=== PATIENT | female | born 1945 | race Caucasian/White ===

== ENCOUNTER 2023-05-04 13:17 | Inpatient (IN) | payer OTHER, SELFPAY ==
[2023-05-04] VITALS (12 sets, daily range): BP systolic 131–190; BP diastolic 55–101; BMI 26.8
--- NOTE | 2023-05-04 06:17 | ED.GENMED ---
History of Present Illness
General
Chief Complaint: Breathing Problem
Source: patient
Time Seen by Provider: 05/04/23 06:17
Travel History
Have you had any contact with someone who has COVID-19?: No
Do you have any symptoms of coronavirus? Fever > 100 degrees, chills, cough, shortness of breath, sore throat, loss of taste or smell, muscle aches, or headache?: No
History of Present Illness
History of Present Illness:
77-year-old female presents to the emergency room complaining of chest discomfort and shortness of breath. Patient evidently has a history of COPD and heart failure. She believes that she should have home oxygen but her family doctor did not
arrange it for what ever reason. No fever or chills. She did use a breathing treatment earlier today without improvement. No associated diaphoresis or nausea.
Phy Exam
Physical Exam
Physical Exam:
General: Awake, Alert, Oriented X3. No acute distress.
Vitals: unremarkable
Head: Atraumatic
Eyes: Pupils equal, EOMI
Throat: Airway intact, no exudates
Neck: Trachea midline
Lungs: Decreased breath sounds, expiratory wheezing
Heart: Regular rate, no murmurs
Abd: Soft, Nontender, No pulsatile mass
Neuro: Nonfocal
Skin: Warm, dry, no rash
Extremities: pulses equal b/l, no edema
Scores
Heart Failure Risk
Heart Failure Risk Score: Not Applicable
Course
Orders/Labs/Results
Orders:
Orders
05/04/23 05:17
EKG [Electrocardiogram (*1)] Urgent
Reason for Study: Shortness of Breath
EKG- Treatment ONCE
05/04/23 06:23
Ipratropium/Albuterol Sulfate [Duoneb] 3 ml INH R NOW STA
CR Chest - 2 Views Urgent
Comment:
Reason For Exam: sob
05/04/23 06:53
Basic Metabolic Panel Urgent
COVID-19 Antigen Urgent
Source: Nasal Swab
Complete Blood Count/With Diff Urgent
D-Dimer Urgent
NT-proBNP Urgent
Troponin I Urgent
Influenza A+B Rapid Molecular Urgent
JANUARY Source: Nasal Swab
Specimen Description:
05/04/23 07:09
Add On- LAB Urgent
Tests Added?: pro-bnp
05/04/23 08:51
Ipratropium/Albuterol Sulfate [Duoneb] 3 ml INH R NOW STA
05/04/23 11:21
Dexamethasone Sod Phosphate [Decadron] 10 mg IV NOW STA
05/04/23 13:06
Admit/Transfer Patient As Directed
Co-Sign Provider:
Level of Care: Inpatient admission
Assign to:: Medical/Surgical
Physician / Group: mikayla ramirez
Diagnosis: acute bronchitis, hx dementia
Reason for Hospitalization: acute bronchitis, hx dementia
Expected length of stay greater than two midnights?: Yes
ELOS- Estimated Length of Stay in days: 3
I certify the patient meets the requirements for IP care: Yes
05/04/23 13:07
Code Status As Directed
Resuscitation Status: Full Code
05/04/23 13:09
PULMONARY CONSULT Routine
Consulting Provider: Rudy Levine
Was physician already notified: Yes
Reason for consult: acute bronchitis
Abnormal Lab Results
05/04/23
06:53
Hct 36.9 L %
(37.0-47.0)
MCHC 32.8 L g/dL
(33.0-37.0)
Eosinophils % 6.6 H %
(0-6)
D-Dimer 0.56 H ug/mlFEU
(0.00-0.50)
Glucose 112 H mg/dl
(70-99)
05/04/23 06:53
05/04/23 06:53
Vital Signs
Initial and Last Documented VS:
Initial Vital Signs
Temp Pulse Resp Pulse Ox
98.4 F 91 21 93
05/04/23 05:19 05/04/23 05:19 05/04/23 05:19 05/04/23 05:19
Last Documented Vital Signs
Temp Pulse Resp BP Pulse Ox
98.4 F 84 21 149/60 93
05/04/23 05:19 05/04/23 13:30 05/04/23 13:30 05/04/23 12:03 05/04/23 13:30
MDM/Problems Addressed
Differential Diagnosis Includes:
COPD exacerbation, pneumonia, pneumothorax, anemia
MDM/Problems Addressed:
Patient has shortness of breath particular with exertion. Workup here does not show any evidence for an infectious process. White count is normal. Hemoglobin is normal. Troponin is normal. Chest x-ray does not show any acute infiltrate.
Patient's BNP is 125 which should essentially rule out heart failure. Radiology report of the chest x-ray questions heart failure but given that BNP and not convinced. Suspect patient is suffering from more of a COPD exacerbation. Will treat with
nebs and steroids. Patient require hospitalization because she is unable to ambulate without significant dyspnea
*Radiology
Radiology exam reviewed: preliminary read by ED provider (My review of the chest x-ray is no acute infiltrate. No significant pulmonary edema)
*Pulse Oximetry
Patient hypoxic: yes
*EKG
Interpreted by ED Provider?: Yes
Interpretation: normal
Heart Rate: 99
Rate: normal
Rhythm: sinus
[place]: normal axis
Interval: normal interval
QRS Pattern: normal QRS
Ischemia: no ischemia
*Acid Blower Interpretation
Rate: normal
Interpretation: normal
Heart Rate: 99
Rhythm: sinus
*Critical Care Note
Total Time (30-74mins, 75-104mins- exclusive of procedures): Not Applicable
Data Reviewed
Further Testing Considered But Not Given:
Considered discharge but the patient becomes fairly dyspneic with minimal exertion. Patient will require hospitalization for further stabilization
Patient Management
Social determinants of health affecting care: Living situation
Discussion with other providers: Hospitalist
ED Attending Note
-
Portions of this chart may have been created with voice recognition software.� Occasional wrong word or��sound alike� substitutions may have occurred due to the inherent limitations of voice recognition software.
Discharge Plan
Departure
Patient Disposition: Admit
Date of Disposition: 05/04/23
Time of Disposition: 11:22
Admit to: Med/Surg
Presentation/result/management discussed w/ accepting MD/DO: Hospitalist
Condition: Fair
Discharge Problem:
COPD exacerbation
Interventions
Interventions:
*Risk Screen - Suicide Last Done: 05/04/23 05:19
*General Assessment Last Done: 05/04/23 05:19
*Neglect/Abuse Screening Last Done: 05/04/23 05:19
ED- Fall Risk Assessment Last Done: 05/04/23 05:28
*ED COVID-19 Vaccine History Last Done: 05/04/23 05:28
ED- Cardiac Assessment Last Done: 05/04/23 05:28
ED- Pulmonary Assessment Last Done: 05/04/23 05:28
[2023-05-04] MEDS: DUONEB 3 ML INH ×4 (07:03→20:05)
[2023-05-04 07:13] LABS: % Basophils 0.7 % (0-2); % Eosinophils 6.6 % (0-6); % Immature Granulocytes 0.3 % (0-0.5); % Lymphocytes 24.6 % (20.5-51.1); % Monocytes 7.7 % (1.7-9.3); % Neutrophils 60.1 % (42.2-75.2); Absolute Basophils 0.1 10^3/uL (0-0.2); Absolute Eosinophils 0.5 10^3/uL (0-0.7); Absolute Lymphocytes 1.7 10^3/uL (1.2-3.4); Absolute Monocytes 0.5 10^3/uL (0.1-0.6); Absolute Neutrophils 4.1 10^3/uL (1.4-6.5); Hematocrit 36.9 % (37.0-47.0); Hemoglobin 12.1 g/dL (12.0-16.0); Mean Corp Hgb Conc. 32.8 g/dL (33.0-37.0); Mean Corpuscular Hgb 28.1 pg (27.0-31.0); Mean Corpuscular Volume 85.6 fL (81.0-99.0); Mean Platelet Volume 9.6 fL (7.4-10.4); Nucleated Red Blood Cells % 0 %; Platelet Count 289 10^3/uL (130-400); Red Blood Cell Count 4.31 10^6/uL (4.20-5.40); Red Cell Dist. Width 12.7 % (11.5-14.5); White Blood Cell Count 6.8 10^3/uL (4.8-10.8)
[2023-05-04 07:25] LABS: Blood Urea Nitrogen 14 mg/dl (7-17); Calcium 9.3 mg/dl (8.4-10.2); Carbon Dioxide 29 mmol/L (22-30); Chloride 106 mmol/L (98-107); Estimated Creatinine Clearance 71 ml/min; Glucose 112 mg/dl (70-99); Potassium 4.5 mmol/L (3.5-5.1); Sodium 139 mmol/L (135-145); eGFR > 60.00
[2023-05-04 07:33] LABS: COVID-19 Antigen Negative (Negative)
[2023-05-04 07:36] LABS: NT-proBNP 125 pg/ml; Troponin I < 0.012 ng/ml
[2023-05-04 07:37] LABS: D-Dimer 0.56 ug/mlFEU (0.00-0.50)
[2023-05-04] MEDS: DECADRON 10 MG IV (11:26)
--- NOTE | 2023-05-04 12:20 | HPS.HSE ---
Addendum entered and electronically signed by Edgard Alva MD 05/04/23 14:51:
I saw and examined the patient.
The LITHOGRAPHIC ARTIST or PA's note was reviewed and I agree with the note.
Comment: 77-year-old female with past medical history of dementia, depression, hypothyroidism, IBS came to the hospital with shortness of breath with suspected COPD exacerbation. Start Decadron, nebs. Pulmicort. Consult pulmonary. has been around
people with smoking. Recent admission at [facility]. Check echo.
General:�No acute distress
HEENT:�NormoCephalic, Anicteric, Oxygen (2lnc)
Respiratory:�Wheezes (diffuse expiratory ); No Rales or Rhonchi
Cardiac:�S1/S2 and Regular Rhythm; No Tachycardia, Murmur
Breast:�Deferred by me
GI:�Soft, Non Tender, Non Distended, Normal Bowel Sounds and No Hepatosplenomegaly
Rectal:�Deferred by Provider
Genito-urinary:�no quinn
Musculoskeletal:� No Edema
Skin:�Warm and Dry
Neuro:�AO x 2-3
Psych:�Calm
I spent a total of 77 minutes with the patient or on the floor. More than 50% of this time involved counseling and coordination of care.
Original Note:
Family Physician
-
Family Physician: NO INTERVIEW UNKNOWN
Chief Complaint
-
Shortness of breath with chest pain on inspiration
History of Present Illness
79-year-old female complaining of shortness of breath with chest pain on inspiration. She had an admission March 20 March 23 at [facility] was diagnosed with COPD given steroids and nebs at that time. Her daughter Alicia who she lives
with states she was not satisfied with the workup. She reports her mother still has a persistent cough with chronic wheezing increased over the past several days. She also reports decline in walking increased shortness of breath increase memory
impairment over the past 60 days. She does have history of Alzheimer's diagnosed 2 years ago did not tolerate medication at that time. She does report she has sundowning with anxiety symptoms. She denies headache, fever, chills, palpitations,
abdominal pain, nausea, vomiting, diarrhea, urinary symptoms. I spoke with her daughter Alicia whom she lives with who gave me all of her medical information.
She has has past medical history of COPD Dx March 20 [facility], Alzheimer's with sundowning HTN, hypothyroidism secondary to complete thyroidectomy thyroid cancer, bilateral mastectomy , chronic ambulatory dysfunction uses walker and
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
Medical History
Past Medical History
Past Medical History: Reports Other
Additional Past Medical History:
HTN�benign
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
Dx dementia October 2021
Thyroid cancer with thyroidectomy
Past Surgical History: Reports Other
Additional Past Surgical History:
Hysterectomy
Breast cancer with mastectomy and lymph node removal
Social History
Tobacco: Non-smoker
Alcohol: None
Drug: None
Personal: Single
Living: With Family (Daughter Alicia)
Employment: Retired
Family History
Family History: Other (Mother breast cancer Father colon cancer)
Allergies / Home Medications
Allergies reflects when Allergies were last updated in [employer]
Home Medications with original date entered in [employer]
Allergy/Medication List:
Allergies
Allergy/AdvReac Type Severity Reaction Status Date / Time
No Known Allergies Allergy Unverified 05/04/23 07:03
Home Medications
ascorbic acid (vitamin C) 500 mg tablet (Vitamin C) 500 mg PO DAILY 05/04/23
aspirin 325 mg tablet 325 mg PO DAILY 05/04/23
benzonatate 1 tab PO TIDPRN PRN cough 05/04/23
buspirone 5 mg tablet 5 mg PO BID@0800,1500 05/04/23
citalopram 20 mg tablet 20 mg PO DAILY 05/04/23
docusate sodium 100 mg capsule (Colace) 100 mg PO DAILY 05/04/23
hydroxyzine HCl 10 mg tablet 10 mg PO HS 05/04/23
ipratropium 0.5 mg-albuterol 3 mg (2.5 mg base)/3 mL nebulization soln 3 ml inhalation R Q4HPRN PRN sob 05/04/23
levothyroxine 125 mcg tablet 125 mcg PO DAILY 05/04/23
linaclotide 290 mcg capsule (Linzess) 290 mcg PO DAILY PRN IBS 05/04/23
olmesartan 40 mg tablet 40 mg PO DAILY 05/04/23
omeprazole 40 mg capsule,delayed release 40 mg PO DAILY 05/04/23
Review of Systems
-
History Source: Patient and Family (daughter royce )
A 12 point ROS was completed and negative except as noted: Yes
Constitutional: Reports Fatigue; Denies Fever
EENT: Denies Tearing or Runny Nose
Respiratory: Reports Cough and Trouble Breathing (wheezing )
Cardiac: Denies Chest Pain, Palpitations or Syncope
Abdomen/GI: Denies Abdominal Pain, Nausea, Vomiting, Diarrhea, Constipated or Bloody Stools
: Denies Dysuria, Frequency, Flank Pain or Incontinence
Musculoskeletal: Denies Joint Pain or Edema
Skin: Denies Itching or Rash
Neurological: Denies Dizzy or Headache
Endocrine: Reports No Symptoms
Hematologic/Lymphatic: Reports No Symptoms
Psych: Reports Calm
Physical Exam
Vital Signs
Vital Signs
Temp Pulse Resp BP Pulse Ox
98.4 F 92 17 131/101 93
05/04/23 05:19 05/04/23 11:30 05/04/23 11:30 05/04/23 11:00 05/04/23 11:30
Physical Exam
General: Slurred Speech (chronic)
HEENT: NormoCephalic, Anicteric, Moist mucous membranes, PERRLA, [place] Conjunctivae and Oxygen (2lnc)
Respiratory: Wheezes (diffuse expiratory ); No Rales or Rhonchi
Cardiac: S1/S2 and Regular Rhythm; No Tachycardia, Murmur, Rub, Gallop or Peripheral Edema
Breast: Deferred by me
GI: Soft, Non Tender, Non Distended, Normal Bowel Sounds and No Hepatosplenomegaly
Rectal: Deferred by Provider
Genito-urinary: Deferred by me
Musculoskeletal: No Clubbing, No Cyanosis and No Edema
Skin: Warm and Dry; No Rash or Jaundice
Neuro: AO x 3 (with some foregetgullness or time discrepency ), No Sensory Deficits and Slurred Speech (Chronic); No Facial Droop or Tremors
Psych: Calm
Laboratory Results
-
05/04/23 06:53
05/04/23 06:53
Laboratory Results
Troponin I < 0.012 ng/ml 05/04/23 06:53
Impression/Plan
-
Impression/plan:
Admit to [facility]
#Acute hypoxic resp insuff 2/2 Acute Bronchitis
New DX COPD Mar 20 2023
93% RA, O2 support as needed
COVID/flu negative
-decadron
-duo nebs svh and prn
-pulmicort
- Consult pulm
Old records from [facility] admit mar 20-
- before D/c get walking pulse ox
- 2D echo
CXR: Marked elevation both hemidiaphragms limits study. Findings suggest mild CHF
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
#Htn
142/55
#Alzheimer's with
-Fall precautions
#Hypothyroidism secondary to complete thyroidectomy
DVT prophylaxis
Subcu Lovenox
Full code
--- NOTE | 2023-05-04 14:11 | PHANOTE ---
05/04/2023, med rec tech, spoke to pt.'s daughter to obtain pt.'s med history; per daughter, pt. takes Benzonatate TIDPRN for cough but this med. is not in pt.'s pharmacy fill data and there are no [facility] records for the pt.; attempted to call pt.'s
pharmacy ([facility] [address] [place], [place] [id number]); phone: [phone]; however, it was closed at time of interview so I could not confirm this med.; pt.'s daughter does not know the strength of this med.
[2023-05-04] MEDS: DUONEB INH (15:49)
--- NOTE | 2023-05-04 16:45 | PTCARENOTE ---
05/04- Patient transferred and oriented to unit without issue. AAOX3, slurred speech, Skin=Warm/[place]/Dry. 2L O2. Patient denies any current complaints.
--- NOTE | 2023-05-04 17:28 | CON.PUL ---
Consultation
Consultation Request
Date/Time Consultation Requested: 05/04/2023 - 130
Date/Time Consultation Performed: 05/04/2023 - 1626
Requesting Provider: Kandi GARZA
Performing Provider: Dr. Levine
Reason for Consultation: COPD exacerbation
Medical History
-
Chief Complaint: Shortness of breath
History of Present Illness:
77-year-old female with a past medical history of COPD, hypertension and stroke who presents with shortness of breath. She apparently was diagnosed COPD earlier this year via a hospitalization at [facility]. Patient still has a
cough with wheezing over the last several days. CXR showed bilateral hemidiaphragm elevation with increased pulmonary vascular congestion. Patient believed to be in a COPD exacerbation and was started on steroids, nebulized bronchodilators and now
pulmonary consulted for additional recommendations.
PMHx: Stroke, dementia, thyroid cancer s/p thyroidectomy, hypertension
PSHx: Hysterectomy, mastectomy with lymph node resection
Past Medical History
Past Medical History: Other (Above as per HPI)
Past Surgical History: Other (Above as per HPI)
Social History
Tobacco: Non-smoker
Alcohol: None
Drug: None
Living: With Family
Family History
Family History: Cancer (Mother: Breast cancer; father: Colon cancer)
Allergies / Home Medications
Allergies
Allergy/AdvReac Type Severity Reaction Status Date / Time
No Known Allergies Allergy Unverified 05/04/23 07:03
Home Medications
Medication Instructions Recorded Confirmed Last Taken Type
ascorbic acid (vitamin C) 500 mg 500 mg PO DAILY 05/04/23 05/04/23 05/03/23 History
tablet (Vitamin C)
aspirin 325 mg tablet 325 mg PO DAILY 05/04/23 05/04/23 05/03/23 History
benzonatate 1 tab PO TIDPRN PRN cough 05/04/23 05/03/23 History
buspirone 5 mg tablet 5 mg PO BID@0800,1500 05/04/23 05/04/23 05/03/23 History
citalopram 20 mg tablet 20 mg PO DAILY 05/04/23 05/04/23 05/03/23 History
docusate sodium 100 mg capsule 100 mg PO DAILY 05/04/23 05/04/23 05/03/23 History
(Colace)
hydroxyzine HCl 10 mg tablet 10 mg PO HS 05/04/23 05/04/23 05/03/23 History
ipratropium 0.5 mg-albuterol 3 mg 3 ml inhalation R Q4HPRN PRN sob 05/04/23 05/04/23 05/04/23 History
(2.5 mg base)/3 mL nebulization
soln
levothyroxine 125 mcg tablet 125 mcg PO DAILY 05/04/23 05/04/23 05/03/23 History
linaclotide 290 mcg capsule 290 mcg PO DAILY PRN IBS 05/04/23 05/04/23 Unknown History
(Linzess)
olmesartan 40 mg tablet 40 mg PO DAILY 05/04/23 05/04/23 05/03/23 History
omeprazole 40 mg capsule,delayed 40 mg PO DAILY 05/04/23 05/04/23 05/03/23 History
release
Review of Systems
-
History Source: Patient
All other systems: Negative unless noted (12 point ROS performed and is negative unless mentioned above.)
Vitals / Labs / Diagnostic Testing
Vital Signs
Temp Pulse Resp BP Pulse Ox
98.2 F 107 18 168/92 97
05/04/23 17:00 05/04/23 20:08 05/04/23 20:08 05/04/23 17:00 05/04/23 20:08
Lab Data
05/04/23 06:53
05/04/23 06:53
Microbiology
05/04/23 06:53 Nasal Swab Influenza Types A & B (JAMISON) - Final
Negative for Influenza A & B, NAAT
Negative results must be combined with clinical observations
and patient history.
Nucleic Acid Amplification test (NAAT)performed on the
Pulsant NOW platform.
Diagnostic Testing:
Physical Exam
-
HEENT: Normocephalic and Anicteric
Cardiovascular: S1/S2 and Peripheral Edema (Negative)
Respiratory: Wheeze (Negative), Rales (Right base) and Rhonchi (Negative)
GI: Soft, Non Distended and Non Tender
Neurology: Awake and Alert
Skin: Warm and Dry
General: Comfortable
Assessment
-
Assessment: 77-year-old female with a past medical history of COPD, hypertension and stroke who presents with shortness of breath. She apparently was diagnosed COPD earlier this year via a hospitalization at [facility]. Patient
still has a cough with wheezing over the last several days. CXR showed bilateral hemidiaphragm elevation with increased pulmonary vascular congestion. Patient believed to be in a COPD exacerbation and was started on steroids, nebulized
bronchodilators and now pulmonary consulted for additional recommendations.
Chronic conditions CUSTODIAL MANAGER: Stroke, dementia, thyroid cancer s/p thyroidectomy, hypertension
Impression:
#Acute COPD exacerbation
#Acute respiratory failure with hypoxemia due to above
#Suspected R-posterior (RML vs RLL) pneumonia
#Hypothyroidism
#Hypertension
Plan:
- Continue systemic steroids (currently decadron 4mg IV q8hr) and wean as tolerated
- Nebulized bronchodilators with budesonide BID
- outpatient PFTs - she can follow with us or return to see her storm window installer at [facility]
- Maintain MAP >65
- check procal and check infectious workup with blood, sputum Cx and urine antigens for legionella and Strep pneumo
- Start azithromycin (trend QTc - currently 459ms) + rocephin
- Mucolytics
- Encourage incentive spirometer
- Maintain euglycemia with goal BG 140�180
- Replete K >4, Mg >2
- DVT prophylaxis: LMWH
Pulmonary service will continue to follow along
Data:
CXR 05-04-2023: There is marked elevation of both hemidiaphragms with limits the study. Findings suggest mild congestive heart failure.
[2023-05-04] MEDS: LOVENOX 40 MG SC (19:32)
[2023-05-04] MEDS: DECADRON 4 MG IV (19:33)
[2023-05-04] MEDS: FLUSH (NSS) 2 FLUSH IV ×2 (19:34→23:40)
[2023-05-04] MEDS: PULMICORT 0.25 MG INH (20:05)
[2023-05-04] MEDS: STERILE WATER FOR INJECTION 10 ML IV (23:39)
[2023-05-04] MEDS: ROCEPHIN 1000 MG IV (23:39)
[2023-05-04] MEDS: ZITHROMAX INFUSION 250 IV (23:44)
[2023-05-05] MEDS: DECADRON 4 MG IV ×2 (04:38→11:30)
[2023-05-05] MEDS: FLUSH (NSS) 2 FLUSH IV (04:40)
[2023-05-05 06:00] VITALS: BMI 26.3
[2023-05-05] MEDS: SYNTHROID 125 MCG PO (06:32)
[2023-05-05 07:00] VITALS: BP 141/73
[2023-05-05 07:37] LABS: % Basophils 0.2 % (0-2); % Immature Granulocytes 0.3 % (0-0.5); % Lymphocytes 6.9 % (20.5-51.1); % Neutrophils 91.6 % (42.2-75.2); Absolute Lymphocytes 0.8 10^3/uL (1.2-3.4); Absolute Monocytes 0.1 10^3/uL (0.1-0.6); Absolute Neutrophils 10.8 10^3/uL (1.4-6.5); Hematocrit 36.1 % (37.0-47.0); Hemoglobin 11.9 g/dL (12.0-16.0); Mean Corpuscular Hgb 27.8 pg (27.0-31.0); Mean Corpuscular Volume 84.3 fL (81.0-99.0); Mean Platelet Volume 9.8 fL (7.4-10.4); Nucleated Red Blood Cells % 0 %; Platelet Count 323 10^3/uL (130-400); Red Blood Cell Count 4.28 10^6/uL (4.20-5.40); Red Cell Dist. Width 12.6 % (11.5-14.5); White Blood Cell Count 11.8 10^3/uL (4.8-10.8)
[2023-05-05] MEDS: PULMICORT 0.25 MG INH ×2 (07:42→19:35)
[2023-05-05] MEDS: DUONEB 3 ML INH ×4 (07:42→19:36)
[2023-05-05 08:05] LABS: Procalcitonin < 0.05 ng/ml (0.0-0.25)
[2023-05-05 08:57] LABS: Blood Urea Nitrogen 16 mg/dl (7-17); Calcium 9.4 mg/dl (8.4-10.2); Carbon Dioxide 25 mmol/L (22-30); Chloride 104 mmol/L (98-107); Estimated Creatinine Clearance 63 ml/min; Glucose 148 mg/dl (70-99); Sodium 138 mmol/L (135-145); eGFR > 60.00
[2023-05-05] MEDS: BENICAR 40 MG PO (09:45)
[2023-05-05] MEDS: COLACE 100 MG PO (09:45)
[2023-05-05] MEDS: ASPIRIN 325 MG PO (09:45)
[2023-05-05] MEDS: PROTONIX 40 MG PO (09:46)
[2023-05-05] MEDS: VITAMIN C 500 MG PO (09:46)
--- NOTE | 2023-05-05 10:01 | W.PN.HOSP.TC ---
Today's Communication/Plan
-
Would favor discontinuation of ceftriaxone and continue Zithromax only with normal procalcitonin
Would reduce Decadron to every 12
Appears may not require oxygen at this point
Continue nebulizer therapy
Evaluate for oxygen need prior to discharge
Assessment / Plan
Assessment / Plan
77-year-old female with past medical history of dementia, depression, hypothyroidism, IBS came to the hospital with shortness of breath with suspected COPD exacerbation.� Start Decadron, nebs.� Pulmicort.� Consult pulmonary. has been around people
with smoking.� Recent admission at [place].� Check echo.
General:�No acute distress
HEENT:�NormoCephalic, Anicteric, Oxygen (2lnc)
Respiratory:�Wheezes (diffuse expiratory ); No Rales or Rhonchi
Cardiac:�S1/S2 and Regular Rhythm; No Tachycardia, Murmur
Breast:�Deferred by me
GI:�Soft, Non Tender, Non Distended, Normal Bowel Sounds and No Hepatosplenomegaly
Rectal:�Deferred by Provider
Genito-urinary:�no quinn
Musculoskeletal:� No Edema
Skin:�Warm and Dry
Neuro:�AO x 2-3
Psych:�Calm
#Acute hypoxic resp insuff 2/2 Acute Bronchitis
New DX COPD Mar 20 2023
93% RA, O2 support as needed
COVID/flu negative
-Procalcitonin within normal limits/would favor just placed on Zithromax and withholding further antibiotics including Rocephin
-decadron
-duo nebs svh and prn
�-pulmicort
- Consult pulm
�Old records from [facility] admit mar 20-
- before D/c get walking pulse ox
- 2D echo still pending
� � CXR: Marked elevation both hemidiaphragms limits study.� Findings suggest mild CHF
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
�#Htn
142/55
#Alzheimer's with sundowning
-Fall precautions
#Hypothyroidism secondary to complete thyroidectomy
DVT prophylaxis
Subcu Lovenox
Full code
Anticipated Discharge: 24 - 48 hours
Subjective/Interval History
-
Date of Service: May 05, 2023
Pleasantly confused in no distress pulse ox stable off oxygen may be able to come off some cough but nonproductive no urine antigen specimens were sent as yet.
Objective Data
-
Labs:
Laboratory Results
05/05/23
07:18
WBC 11.8 H
Hgb 11.9 L
Hct 36.1 L
Plt Count 323
Sodium 138
Potassium 4.0
Chloride 104
Carbon Dioxide 25
BUN 16
Creatinine 0.6
Glucose 148 H
Calcium 9.4
Vital Signs:
Vital Signs
Temp Pulse Resp BP Pulse Ox
98.0 F 86 18 141/73 97
05/05/23 07:00 05/05/23 07:45 05/05/23 07:45 05/05/23 07:00 05/05/23 07:45
I&O
05/04/23 05/05/23 05/06/23
06:59 06:59 06:59
Intake Total 120 / 120
Balance 120 / 120
Review of Systems
-
Unable to obtain full review of systems at this time due to: Dementia
History Source: Patient
Constitutional: Reports No Symptoms and Weakness
EENT: Reports No Symptoms Reported
Respiratory: Reports No Symptoms
Cardiac: Reports No Symptoms
Abdomen/GI: Reports No Symptoms
Musculoskeletal: Reports No Symptoms
Skin: Reports No Symptoms
Neuro: Reports No Symptoms
Endocrine: Reports No Symptoms
Hematologic / Lymphatic: Reports No Symptoms
Physical Exam
-
General: Well Developed
HEENT: Normocephalic
Respiratory: Wheezes
Cardiac: Regular Rhythm
GI: Soft
Skin: Warm
Neuro: Awake
Data Reviewed
-
Total Time Spent with Patient (in minutes): 45
CT Scan: Report Reviewed by me
Labs: Labs Reviewed by me (White count 11.8/hemoglobin 11.9/blood sugar 148)
[2023-05-05] MEDS: CELEXA 20 MG PO (11:30)
[2023-05-05] MEDS: FLUSH (NSS) 1 FLUSH IV (11:32)
[2023-05-05 12:22] VITALS: BP 145/73; PULSE 101; O2SAT 96
[2023-05-05 12:59] VITALS: BP 145/73; PULSE 94; O2SAT 96
--- NOTE | 2023-05-05 14:39 | CM ---
Addendum entered by Phuong Stone 05/05/23 14:58:
Scott Deras
[phone]

Original Note:
client account manager reviewed patient's chart and met with patient and patient lives with her daughter who is a nurse, patient is independent with adl's and uses a w/c, patient also has a walker, tub chair rails. client account manager discussed with patient
discharge planning needs and patient's daughter would like patient to have oxygen in home. Patient's daughter is a nurse, patient has a prescription plan and patient uses [facility], patient is also current with [facility].
Plan; Home with [facility] visiting nurses and any home oxygen needs at discharge.
[2023-05-05 15:00] VITALS: BP 134/61
--- NOTE | 2023-05-05 16:51 | W.PN.PUL3 ---
Today's Communication / Plan
-
O2
CS
Azithro
Assessment
-
Assessment: 77-year-old female with a past medical history of COPD, hypertension and stroke who presents with shortness of breath. She apparently was diagnosed COPD earlier this year via a hospitalization at [facility]. Patient
still has a cough with wheezing over the last several days. CXR showed bilateral hemidiaphragm elevation with increased pulmonary vascular congestion. Patient believed to be in a COPD exacerbation and was started on steroids, nebulized
bronchodilators and now pulmonary consulted for additional recommendations.
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
Impression:
#Acute COPD exacerbation
#Acute respiratory failure with hypoxemia due to above
#Hypothyroidism
#Hypertension
Plan:
Currently on O2 2L
Reportedly POx 95% on RA at 3;15 pm this afternoon
Not on home O2
On DNs at home by PCP
- Continue systemic steroids (currently decadron 4mg IV q8hr)
- Nebulized bronchodilators with budesonide BID
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
- checked procal: normal
Check infectious workup:
Blood cx 05-04 pending, sputum Cx not collected, urine antigens for legionella and Strep pneumo not colllected
- Started azithromycin (trend QTc - 459ms on adm, now 447 ms on 05-05), rocephin d/c'ed 05-05
- Mucolytics
- Encourage incentive spirometer
TTE 05-05: LVEF 554-60%, stage II DD, mild MR, normal RV size and function
- DVT prophylaxis: LMWH
Pulmonary service will continue to follow along
Data:
CXR 05-04-2023: There is marked elevation of both hemidiaphragms with limits the study. Findings suggest mild congestive heart failure.
Subjective Data
-
Date of Service:
Date of Service: May 05, 2023
Chief Complaint: Pulmonary Follow Up
Subjective:
No major events reported
Feels better re dyspnea
Dgtr at bedside
Review of Systems
General: Fever (n), Sweats and Chills
Cardiopulmonary: Dyspnea, Cough and Wheezing (n)
GI: Abdominal Pain (n), Nausea (n) and Vomiting
Neuro: Weakness
Objective Data
Data Reviewed
Vital Signs / I&O / Oxygen:
Vital Signs
Temp Pulse Resp BP Pulse Ox
98.0 F 92 18 141/73 95
05/05/23 07:00 05/05/23 15:15 05/05/23 15:15 05/05/23 07:00 05/05/23 15:15
Intake and Output
05/04/23 05/05/23 05/06/23
06:59 06:59 06:59
Intake Total 120 / 120
Balance 120 / 120
SaO2 95
Nasal Cannula flow liters per 2
minute
Physical Exam
General: Comfortable
HEENT: Normocephalic and Moist Mucous Membranes
Cardiovascular: Regular Rhythm, Murmur (n) and Peripheral Edema (n)
Respiratory: Clear, Non-Labored Respirations and Stridor (n)
GI: Soft, Non Distended and Non Tender
Neurology: Awake, Oriented and No Motor Deficits
Skin: Dry
Labs/Micro/Reports
Lab Data
05/05/23 07:18
05/05/23 07:18
Microbiology
05/04/23 06:53 Nasal Swab Influenza Types A & B (JAMISON) - Final
Negative for Influenza A & B, NAAT
Negative results must be combined with clinical observations
and patient history.
Nucleic Acid Amplification test (NAAT)performed on the
[employer] platform.
[2023-05-05] MEDS: LOVENOX 40 MG SC (18:49)
[2023-05-05] MEDS: ZITHROMAX 250 MG PO (21:57)
[2023-05-05 23:17] VITALS: BP 127/65
[2023-05-06] MEDS: DECADRON 4 MG IV (00:07)
[2023-05-06 05:47] VITALS: BMI 26.1
[2023-05-06] MEDS: SYNTHROID 125 MCG PO (05:58)
[2023-05-06] MEDS: DUONEB 3 ML INH ×2 (07:48→11:05)
[2023-05-06] MEDS: PULMICORT 0.25 MG INH (07:48)
[2023-05-06 08:00] VITALS: BP 167/58
[2023-05-06 08:14] LABS: % Basophils 0.1 % (0-2); % Immature Granulocytes 0.6 % (0-0.5); % Lymphocytes 5.4 % (20.5-51.1); % Monocytes 2.6 % (1.7-9.3); % Neutrophils 91.3 % (42.2-75.2); Absolute Immature Granulocytes 0.1 10^3/uL (0-0.05); Absolute Lymphocytes 1.1 10^3/uL (1.2-3.4); Absolute Monocytes 0.5 10^3/uL (0.1-0.6); Absolute Neutrophils 18.7 10^3/uL (1.4-6.5); Hematocrit 38.6 % (37.0-47.0); Hemoglobin 12.8 g/dL (12.0-16.0); Mean Corp Hgb Conc. 33.2 g/dL (33.0-37.0); Mean Corpuscular Hgb 28.1 pg (27.0-31.0); Mean Corpuscular Volume 84.6 fL (81.0-99.0); Mean Platelet Volume 10.9 fL (7.4-10.4); Nucleated Red Blood Cells % 0 %; Platelet Count 390 10^3/uL (130-400); Red Blood Cell Count 4.56 10^6/uL (4.20-5.40); Red Cell Dist. Width 13.1 % (11.5-14.5); White Blood Cell Count 20.5 10^3/uL (4.8-10.8)
[2023-05-06] MEDS: CELEXA 20 MG PO (08:34)
[2023-05-06] MEDS: PROTONIX 40 MG PO (08:34)
[2023-05-06] MEDS: ASPIRIN 325 MG PO (08:35)
[2023-05-06] MEDS: VITAMIN C 500 MG PO (08:35)
[2023-05-06] MEDS: COLACE 100 MG PO (08:35)
[2023-05-06] MEDS: BENICAR 40 MG PO (08:35)
[2023-05-06 08:37] VITALS: BP 185/148
[2023-05-06 08:48] LABS: Blood Urea Nitrogen 21 mg/dl (7-17); Calcium 9.9 mg/dl (8.4-10.2); Carbon Dioxide 25 mmol/L (22-30); Chloride 104 mmol/L (98-107); Estimated Creatinine Clearance 63 ml/min; Glucose 108 mg/dl (70-99); Potassium 4.5 mmol/L (3.5-5.1); Sodium 138 mmol/L (135-145); eGFR > 60.00
--- NOTE | 2023-05-06 10:41 | CM ---
Chart reviewed and patient to return to home with visiting nurses at discharge. [facility].
Plan; [facility].
[facility].
[phone]
--- NOTE | 2023-05-06 11:27 | W.PN.HOSP.TC ---
Today's Communication/Plan
-
Would discontinue steroids at this point is only offering increase in blood pressure and anxiety levels and aggravating her dementia and confusion.
May need home oxygen screen prior to discharge
All urine antigen studies negative for infection including Legionella and strep
Influenza negative COVID-negative
Assessment / Plan
Assessment / Plan
77-year-old female with past medical history of dementia, depression, hypothyroidism, IBS came to the hospital with shortness of breath with suspected COPD exacerbation.� Start Decadron, nebs.� Pulmicort.� Consult pulmonary. has been around people
with smoking.� Recent admission at [facility].� Check echo.
General:�No acute distress
HEENT:�NormoCephalic, Anicteric, Oxygen (2lnc)
Respiratory:�Wheezes (diffuse expiratory ); No Rales or Rhonchi
Cardiac:�S1/S2 and Regular Rhythm; No Tachycardia, Murmur
Breast:�Deferred by me
GI:�Soft, Non Tender, Non Distended, Normal Bowel Sounds and No Hepatosplenomegaly
Rectal:�Deferred by Provider
Genito-urinary:�no quinn
Musculoskeletal:� No Edema
Skin:�Warm and Dry
Neuro:�AO x 2-3
Psych:�Calm
#Acute hypoxic resp insuff 2/2 Acute Bronchitis
New DX COPD Mar 20 2023
93% RA, O2 support as needed
COVID/flu negative
-Procalcitonin within normal limits/would favor just placed on Zithromax and withholding further antibiotics including Rocephin
-decadron will be discontinued as only offering significant leukocytosis and elevation in blood pressure and not an active bronchospasm
-duo nebs svh and prn
�-pulmicort
- Consult pulm
�Old records from [facility]� [facility]
- before D/c get walking pulse ox
- 2D echo was largely unremarkable
� � CXR: Marked elevation both hemidiaphragms limits study.� Findings suggest mild CHF
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
�#Htn
142/55
#Alzheimer's with sundowning
-Fall precautions
#Hypothyroidism secondary to complete thyroidectomy
DVT prophylaxis
Subcu Lovenox
Full code
Anticipated Discharge: Within 24 hours
Subjective/Interval History
-
Date of Service: May 06, 2023
She is very anxious to go home she has no respiratory complaints there is no accessory muscle usage and there is no obvious wheezing sitting up in chair she is anxious she has underlying dementia.
Objective Data
-
Labs:
Laboratory Results
05/06/23
07:17
WBC 20.5 H
Hgb 12.8
Hct 38.6
Plt Count 390 D
Sodium 138
Potassium 4.5
Chloride 104
Carbon Dioxide 25
BUN 21 H
Creatinine 0.6
Glucose 108 H
Calcium 9.9
Vital Signs:
Vital Signs
Temp Pulse Resp BP Pulse Ox
98.1 F 92 16 185/148 99
05/06/23 08:37 05/06/23 09:11 05/06/23 09:11 05/06/23 08:37 05/06/23 09:11
I&O
05/05/23 05/06/23 05/07/23
06:59 06:59 06:59
Intake Total 120 / 120 2039
Output Total 450 / 450
Balance 120 / 120 1590 / 1590
Review of Systems
-
Unable to obtain full review of systems at this time due to: Dementia
History Source: Patient
Respiratory: Reports Cough
Physical Exam
-
General: Well Developed
HEENT: Normocephalic
Respiratory: Rhonchi
Cardiac: Regular Rhythm
GI: Soft and Nontender
Musculoskeletal: No Edema
Neuro: Awake, Alert, Oriented and AO x 3
Psych: Confused and Apparent Dementia
Data Reviewed
-
Total Time Spent with Patient (in minutes): 45
Labs: Labs Reviewed by me (Leukocytosis now up to 20,000/steroid)
--- NOTE | 2023-05-06 11:51 | W.DS.TRANS ---
DC Summary - [employer]
-
Discharge Instructions:
Sleep Apnea Risk Low
Discharge Diagnosis/Procedures Exacerbation of COPD
Diet As tolerated
Activity As tolerated
Driving Restrictions As prior to admission
Instructions:
Stand-Alone Forms:
Changes to Home Medications: Yes
Discharge Medications:
DC Medications w/original date entered in [employer]
ascorbic acid (vitamin C) 500 mg tablet (Vitamin C) 500 mg PO DAILY Supplement 05/04/23
aspirin 325 mg tablet 325 mg PO DAILY Blood Clot Prevention/Tx 05/04/23
benzonatate 1 tab PO TIDPRN PRN cough 05/04/23
buspirone 5 mg tablet 5 mg PO BID@0800,1500 Mental Health/Anxiety 05/04/23
citalopram 20 mg tablet 20 mg PO DAILY Mental Health/Anxiety 05/04/23
docusate sodium 100 mg capsule (Colace) 100 mg PO DAILY Constipation 05/04/23
hydroxyzine HCl 10 mg tablet 10 mg PO HS Sleep 05/04/23
ipratropium 0.5 mg-albuterol 3 mg (2.5 mg base)/3 mL nebulization soln 3 ml inhalation R Q4HPRN PRN sob 05/04/23
levothyroxine 125 mcg tablet 125 mcg PO DAILY Thyroid 05/04/23
linaclotide 290 mcg capsule (Linzess) 290 mcg PO DAILY PRN IBS 05/04/23
olmesartan 40 mg tablet 40 mg PO DAILY Blood Pressure 05/04/23
omeprazole 40 mg capsule,delayed release 40 mg PO DAILY Gastrointestinal Issue 05/04/23
budesonide 0.25 mg/2 mL suspension for nebulization 0.25 mg (2 mL) inhalation BID Anti-inflammatory #60 mL 05/06/23
Home Medication Changes
budesonide 0.25 mg/2 mL suspension for nebulization 0.25 mg (2 mL) inhalation BID Anti-inflammatory #60 mL 05/06/23
Pending Results: No
--- NOTE | 2023-05-06 13:31 | W.PN.PUL3 ---
Today's Communication / Plan
-
D/c
Assessment
-
Assessment: 77-year-old female with a past medical history of COPD, hypertension and stroke who presents with shortness of breath. She apparently was diagnosed COPD earlier this year via a hospitalization at [facility]. Patient
still has a cough with wheezing over the last several days. CXR showed bilateral hemidiaphragm elevation with increased pulmonary vascular congestion. Patient believed to be in a COPD exacerbation and was started on steroids, nebulized
bronchodilators and now pulmonary consulted for additional recommendations.
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
Impression:
#Acute COPD exacerbation
#Acute respiratory failure with hypoxemia due to above
#Hypothyroidism
#Hypertension
Plan:
Currently on RA
Did not qualify for O2
Daughter will pay for home O2 out of pocket
On DNs at home by PCP
- Discontinue systemic steroids due to anxiety, luckily resp olmstead stable
- Nebulized bronchodilators with budesonide BID
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 upon d/c, info left at chart
- checked procal: normal
Check infectious workup:
Blood cx 05-04 pending, sputum Cx not collected, urine antigens for legionella and Strep pneumo not colllected
- Started azithromycin (trend QTc - 459ms on adm, now 447 ms on 05-05), complete 5 d course. Rocephin d/c'ed 05-05
- Mucolytics
TTE 05-05: LVEF 554-60%, stage II DD, mild MR, normal RV size and function
- DVT prophylaxis: LMWH
Disposition: for d/c today
Data:
CXR 05-04-2023: There is marked elevation of both hemidiaphragms with limits the study. Findings suggest mild congestive heart failure.
Subjective Data
-
Date of Service:
Date of Service: May 06, 2023
Chief Complaint: Pulmonary Follow Up
Subjective:
No major resp events reported
Feeling much better, wants to go home today
Review of Systems
General: Fever (n), Sweats (n), Chills (n) and Satisfactory Appetite
HEENT: Epistaxis (n) and Dysphagia (n)
Cardiopulmonary: Dyspnea (n at rest), Dyspnea on Exertion, Cough, Sputum Production (n), Wheezing (n) and Chest Pain
GI: Abdominal Pain (n), Nausea (n) and Vomiting (n)
Neuro: Weakness
Objective Data
Data Reviewed
Vital Signs / I&O / Oxygen:
Vital Signs
Temp Pulse Resp BP Pulse Ox
98.1 F 92 16 185/148 99
05/06/23 08:37 05/06/23 09:11 05/06/23 09:11 05/06/23 08:37 05/06/23 09:11
Intake and Output
05/05/23 05/06/23 05/07/23
06:59 06:59 06:59
Intake Total 120 / 120 2039 / 2040
Output Total 450 / 450
Balance 120 / 120 1590 / 1590
SaO2 99
Nasal Cannula flow liters per 2
minute
Physical Exam
General: Comfortable
HEENT: Normocephalic and Moist Mucous Membranes
Cardiovascular: Regular Rhythm, Murmur (n) and Peripheral Edema (n)
Respiratory: Clear, Non-Labored Respirations and Stridor (n)
GI: Soft, Non Distended and Non Tender
Neurology: Awake, Oriented and No Motor Deficits
Skin: Dry
Labs/Micro/Reports
Lab Data
05/06/23 07:17
05/06/23 07:17
Microbiology
05/04/23 21:59 Blood/Venous Blood Culture - Preliminary
No Growth in 24 hours- Final report to follow
05/05/23 20:02 Urine Legionella Urinary Antigen - Final
Negative for Legionella pneumophila Serogroup 1 antigen.
A negative result does not rule out the possiblity of
Legionella infection due to other serogroups or species of
Legionella. Clinical correlation is recommended.
05/05/23 20:02 Urine Streptococcus pneumoniae Antigen (M - Final
Negative for Streptococcus pneumoniae antigen.
A negative result does not exclude infection with
Streptococcus pneumoniae. Clinical correlation is
recommended.
05/04/23 06:53 Nasal Swab Influenza Types A & B (JAMISON) - Final
Negative for Influenza A & B, NAAT
Negative results must be combined with clinical observations
and patient history.
Nucleic Acid Amplification test (NAAT)performed on the
[employer] platform.
--- NOTE | 2023-05-06 15:10 | W.DCSUMMARY ---
Discharge Summary
Discharge Data
Date of Admission: 05/04/23
Date of Discharge: 05/06/23
-
Pending Results: No
Hospital Course
Female with a past medical history of COPD hypertension and stroke who presents with shortness of breath With COPD earlier in the year and hospitalized at [facility] and had undergone a steroid taper with good result there presented
now with cough and wheezing for last several days prior to presentation with a chest x-ray showing bilateral hemidiaphragm elevation with possible increase in pulm vascular congestion she was admitted to the medical floor under presumptive diagnosis
of COPD exacerbation placed on IV steroids nebulized bronchodilators and pulmonary consultation.
She has underlying dementia and steroid management seem to aggravate anxiety and agitation and aggravated hypertension and heart rate.
She exhibited congestion bronchospasm but after first date of oxygen therapy no longer needed and did not show any desaturation on home oxygen assessment.
It was felt that the steroid management would only further aggravate her anxiety and her underlying dementia and steroids were discontinued
We are in favor of continuation of budesonide nebulizer therapy as she has had significant improvement and no longer require oxygen therapy
She did not qualify for oxygen therapy after home O2 assessment and 6-minute walk test.
She will continue DuoNeb treatments as prior at home/pulmonary service did see the patient along with myself on the date of her discharge and considered stable for discharge
We called in a prescription for budesonide nebs to be taken twice daily at 2.5 mg
We will arrange for visiting nurse Association follow-up/she also agrees to follow-up with pulmonology with [facility]
Discharge Plan
-
Patient Disposition: Home with Home Care
Discharge Diagnosis/Procedures: Exacerbation of COPD
Diet: As tolerated
Activity: As tolerated
Driving Restrictions: As prior to admission
Referrals:
Wolf Livingston MD [Active] - (New patient: COPD, see in 2-3 wks p d/c)
UNKNOWN,NO INTERVIEW [Family Provider] -
Prescriptions:
New
budesonide 0.25 mg/2 mL suspension for nebulization
0.25 mg inhalation BID Qty: 60 0RF
Continued
buspirone 5 mg Tablet
5 mg PO BID@0800,1500
ipratropium-albuterol 0.5 mg-3 mg(2.5 mg base)/3 mL Solution For Nebulization
3 ml INHALATION R Q4HPRN PRN (Reason: sob)
aspirin 325 mg Tablet
325 mg PO DAILY
omeprazole 40 mg Capsule,Delayed Release(Dr/Ec)
40 mg PO DAILY
citalopram 20 mg Tablet
20 mg PO DAILY
ascorbic acid (vitamin C) [Vitamin C] 500 mg Tablet
500 mg PO DAILY
levothyroxine 125 mcg Tablet
125 mcg PO DAILY
docusate sodium [Colace] 100 mg Capsule
100 mg PO DAILY
hydroxyzine HCl 10 mg Tablet
10 mg PO HS
olmesartan 40 mg Tablet
40 mg PO DAILY
Linzess 290 mcg Capsule
290 mcg PO DAILY PRN (Reason: IBS)
benzonatate
1 tab PO TIDPRN PRN (Reason: cough)
Discharge Orders:
Discharge Patient (As Directed); Ordered 05/06/23
Ordered By: Vincent Hay
== END 2023-05-06 15:31 | disposition home health service (06) | DRG 202 ==
LOC: 4 WEST ACU 13:17
PROVIDERS: Clinical Nurse Specialist Family Health; Emergency Medicine; ADMITTING PHYSICIAN Internal Medicine; ATTENDING PHYSICIAN Internal Medicine; EMERGENCY PHYSICIAN Emergency Medicine; OTHER PHYSICIAN Internal Medicine Critical Care Medicine
DX: J20.9 Acute bronchitis, unspecified (principal); J96.01 Acute respiratory failure with hypoxia; F02.84 Dementia in other diseases classified elsewhere, unspecified severity, with anxiety; J44.1 Chronic obstructive pulmonary disease with (acute) exacerbation; F05 Delirium due to known physiological condition; J44.0 Chronic obstructive pulmonary disease with (acute) lower respiratory infection; G30.9 Alzheimer's disease, unspecified; E89.0 Postprocedural hypothyroidism; I10 Essential (primary) hypertension
CPT/HCPCS: 71046; 80048; 83880; 84145; 84484; 85025; 85379; 87040; 87449; 87502; 87811; 87899; 93005; 93306; 94640; 96374; 97163; 97166; 99285